=== PATIENT | female | born 1985 ===

== ENCOUNTER 2025-11-12 21:24 | Emergency (ER) | payer SELFPAY ==
[2025-11-12] VITALS (20 sets, daily range): BP systolic 112–134; BP diastolic 55–93; PULSE 93–126; RESP 11–20; TEMP 36.7; O2SAT 92–100
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
--- NOTE | 2025-11-12 21:33 | DI.CT_ITS ---
Exam(s) CT CHEST/ABD/PEL W CT THORACIC LUMBAR SPINE REC EXAM: CT CHEST/ABD/PEL W CLINICAL HISTORY: Trauma TECHNIQUE: Imaging Protocol: Axial computed tomography images with coronal and sagittal reformatted images were created and reviewed. Lung Computer Aided Detection (CAD) was utilized. CONTRAST MATERIAL: Intravenous: Omnipaque 350 contrast volume:75 mL Oral: No COMPARISON: CT CT THORACIC LUMBAR SPINE REC from 11/12/2025 FINDINGS: CHEST: Tracheobronchial tree: Patent where visualized. No evidence of bronchiectasis. Pulmonary parenchyma: No consolidation or dominant measurable mass. No architectural distortion. There is a 4 mm nodule in the periphery of the right lung apex (series 4, image 13). Visualized thyroid gland: Unremarkable. Mediastinum and Zari: No dominant adenopathy or fluid collection. The esophagus is unremarkable. There is triangular shaped soft tissue in the anterior mediastinum most likely reflecting residual thymic tissue. Pleura: No effusion or pneumothorax. Heart: The heart is not dilated. No coronary artery calcifications are seen. No pericardial effusion. Pulmonary arteries: There is no evidence of a pulmonary embolism to the level of the segmental pulmonary arteries. Aorta: Thoracic aorta non-dilated. Lymph nodes: Within normal limits. Soft tissues: Unremarkable. Bones:Within normal limits for the patient's age. CT thoracic spine recons: There are no acute fractures or subluxations seen in the thoracic spine. CT lumbar spine recons: There is an acute fracture involving the anterior inferior L5 vertebral body with anterior wedging present. There is a fracture fragment displaced anteriorly.There is approximately 20 percent loss of the height of the vertebral body anteriorly. ABDOMEN: Liver: Normal density. No measurable mass. Portal, Superior Mesenteric, and Splenic Veins: Unremarkable. Gallbladder and Biliary Tract: No radiodense calculus or dilation. Pancreas: Normal density, no abnormal calcifications or inflammatory process. Spleen: Normal. Adrenals: No masses seen. Kidneys: Normal size, contour and axis. No radiodense stones or obstructive uropathy. No masses seen. Abdominal Aorta: Abdominal portion non-dilated. Bowel: There are diverticula seen in the colon without evidence of acute diverticulitis. Appendix is unremarkable. There is no evidence of bowel obstruction or bowel wall thickening. Peritoneal Cavity: No ascites, collection or mesenteric inflammatory response. No free air. Lymph Nodes: Within normal limits. Bones: Within normal limits for the patient's age. Soft Tissues: There is a small fat containing umbilical hernia. PELVIS: Bladder: Symmetric distention, no gross wall thickening. Reproductive Organs: Unremarkable as visualized. Lymph Nodes: Within normal limits. Bones: Within normal limits. IMPRESSION: 1. There is no acute pulmonary process. 2. There is no acute fracture of the thoracic spine. 3. Compression fracture of the anterior L5 vertebral body with a displaced fracture fragment seen anteriorly. 4. Right upper lobe pulmonary nodule. Solid nodules smaller than 6 mm do not require routine follow-up in all patients with high clinical risk; however, some nodules smaller than 6 mm with suspicious morphology, upper lobe location, or both may warrant follow-up at 12 months (grade 2A; weak recommendation, high-quality evidence). (Roby et al., 2017) Single solid noncalcified nodules. ???Solid nodules smaller than 6 mm (those 5 mm or smaller) do not require routine follow-up in patients at low risk (grade 1C; strong recommendation, low- or [id number] evidence). (Roby et al., 2017) 5. There is no acute abdominal or pelvic process. 6. The preliminary [facility] report was reviewed. RADIATION DOSE DELIVERED: 825.96mGy.cm Total DLP DATA REPOSITORY: All CT scans at this facility are submitted to the National Radiology Data Registry (NRDR) Dose Index Registry (DIR) with the [employer] (ACR). RADIATION OPTIMIZATION: All CT scans at this facility use at least one of these dose optimization techniques: automated exposure control; mA and/or kV adjustment per patient size (includes targeted exams where dose is matched to clinical indication); or iterative reconstruction.
[2025-11-12] MEDS: Ketamine 50 MG/5 ML SYRINGE ×3 (21:34→22:45)
[2025-11-12 21:42] LABS: BE (Venous) 0 mmol/L (-2-3); HCO3 (Venous) 25 mmol/L (23-28); O2 Sat (Venous) 67 %; TCO2 (Venous) 23 mmol/L (24-29); pCO2 (Venous) 40 mmHg (41-51); pO2 (Venous) 35 mmHg
[2025-11-12 21:43] LABS: Abs Immature Grans 0.08 10^3/uL (0.0-0.06); HCT 39.6 % (36.0-46.0); HGB 13.1 g/dL (11.2-15.7); Immature Grans % 0.6 %; MCH 29.2 pg (27.0-33.0); MCHC 33.1 % (32.0-36.0); MCV 88 fL (80-95); MPV 9.5 fL (8.0-11.0); Platelet Count 309 10^3/uL (130-400); RBC 4.49 10^6/uL (3.93-5.22); RDW 12.5 % (11.7-14.6); RDW-SD 40.5 fL; WBC 14.08 10^3/uL (4.4-10.8)
[2025-11-12] MEDS: HYDROmorphone 2 MG/ML SYR (21:45)
[2025-11-12 22:03] LABS: Lipase 54 U/L (<53)
[2025-11-12 22:05] LABS: ALT 23 U/L (10-49); AST 40 U/L (<34); Albumin 4.4 g/dL (3.2-5.0); Alkaline Phosphatase 47 U/L (46-116); Anion Gap 9.3 mmol/L (3-11); BUN 17 mg/dL (9-23); Bilirubin, Total 1.1 mg/dL (0.2-1.2); CO2 24.7 mmol/L (20.0-31.0); Calcium 8.4 mg/dL (8.3-10.6); Chloride 108 mmol/L (98-107); Glucose 113 mg/dL (74-106); INR 1.0 (0.9-1.1); PTT Activated 24.2 sec (20.6-30.2); Potassium 3.4 mmol/L (3.5-5.1); Prothrombin Time 10.2 sec (9.1-11.1); Sodium 142 mmol/L (136-145); Total Protein 7.1 g/dL (5.7-8.2)
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
[2025-11-12 22:38] LABS: Creatine Kinase 282 U/L (34-145)
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
[2025-11-12] MEDS: ACETAMINOPHEN 1,000 MG/100 ML BAG 400 MG IVPB (23:13)
[2025-11-12] MEDS: HYDROmorphone 2 MG/ML SYR IVP (23:14)
[2025-11-12] MEDS: Ketorolac 15 MG/ML VIAL IVP (23:14)
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
[2025-11-12 23:48] LABS: Glucose Negative (Negative)
[2025-11-12 23:55] LABS: C & S Indicated? Yes
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
== END 2025-11-12 23:47 | disposition short-term general hospital (02) ==
LOC: ER 23:28
PROVIDERS: Emergency Provider General Practice
DX: S72.402A Unspecified fracture of lower end of left femur, initial encounter for closed fracture (principal); V43.62XA Car passenger injured in collision with other type car in traffic accident, initial encounter
CPT/HCPCS: 36415; 51702; 73552; 73706; 74177; 80053; 82550; 82805; 83690; 86850; 86900; 86901; 87077; 96365; 96375; 99291; 70450; 71045; 71260; 72125; 72170; 80320; 81003; 81015; 83605; 85025; 85610; 85730; 87086; 87186; J0131; J1171; J1885